=== PATIENT | female | born 1980 | race Hispanic/Latino ===

== ENCOUNTER 2019-11-22 15:15 | Observation (INO) | payer OTHER, SELFPAY ==
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
[2019-11-22 16:34] VITALS: BMI 35.2
[2019-11-22 16:41] LABS: #Eosinphils 0.1 thou/uL (0.0-0.7); #Lymphocytes 1.6 thou/uL (1.20-3.40); #Monocytes 0.3 thou/uL (0.11-0.59); #Neutrophils 7.9 thou/uL (1.40-6.50); %Basophils 0.3 % (0.0-1.0); %Eosinophils 0.5 % (0.0-10.0); %Lymphocytes 16.5 % (21.0-51.0); %Monocytes 3.3 % (0.0-10.0); %Neutrophils 79.4 % (42.0-75.0); Hemoglobin 12.6 g/dL (12.0-16.0); Mean Corpuscular HGB CONC 34.3 g/dL (32.0-36.0); Mean Corpuscular Hemoglobin 30.5 pg (27.0-31.0); Mean Corpuscular Volume 89.1 fL (78.0-98.0); Mean Platelet Volume 9.3 fL (7.4-10.4); Platelet Count 206 thou/uL (130-400); RBC Distribution Width 12.5 % (11.5-14.5); Red Blood Cell (RBC) Count 4.12 mill/uL (4.20-5.40); White Blood Cell (WBC) Count 9.9 thou/uL (4.8-10.8)
[2019-11-22] MEDS ORDERED: hydrALAZINE 20 MG/ML VIAL ONE (16:53)
[2019-11-22] MEDS ORDERED: Magnesium Sulfate 20 gm/500 ml 20 GM/500 ML BAG ONE (16:56)
[2019-11-22] MEDS ORDERED: hydrALAZINE 20 MG/ML VIAL SLOW IVP PRN (16:58)
[2019-11-22 17:01] LABS: ALT (SGPT) 13 U/L (8-55); AST (SGOT) 17 U/L (5-34); Albumin 3.6 g/dL (3.5-5.0); Alkaline Phosphatase 126 U/L (40-110); Anion Gap 15 mmol/L (10-20); BUN (Urea Nitrogen) 7 mg/dL (7.0-18.7); Bilirubin, Total 0.2 mg/dL (0.2-1.2); Calc. Creatinine Clearance 191 mL/min (70-130); Calcium 9.9 mg/dL (7.8-10.44); Carbon Dioxide 20 mmol/L (22-29); Chloride 103 mmol/L (98-107); Estimated GFR-MDRD Greater than 90; Globulin 3.4 g/dL (2.4-3.5); Glucose 79 mg/dL (70-105); Potassium 3.8 mmol/L (3.5-5.1); Sodium 134 mmol/L (136-145)
[2019-11-22] MEDS ORDERED: Betamet Acet/Betamet Na Ph 30 MG/5 ML VIAL ONE (18:03)
--- NOTE | 2019-11-22 18:21 | ULT ---
ULTRASOUND BIOPHYSICAL PROFILE: HISTORY: distress, preeclampsia workup FINDINGS: A single live intrauterine gestation is seen. heart rate:139bpm FIONA: 15.9 cm Placenta: Anterior without placenta previa OB biophysical profile: tone: 2 breathin movements: 2 Amniotic fluid: 2 IMPRESSION: The ultrasound biophysical profile score is 8 out of 8.
[2019-11-22 18:51] LABS: Creatinine, Urine Less than 20.00 mg/dL (47-110); Protein, Urine Random Quant Less than 10 mg/dL (1-14)
[2019-11-22] MEDS ORDERED: Acetaminophen 500 MG TAB PO PRN (18:55)
[2019-11-22] MEDS ORDERED: Calcium Carbonate 500 MG ChewTAB PO PRN (18:55)
[2019-11-22] MEDS ORDERED: Dextrose 50% Abboject 50 ML SYRINGE SLOW IVP PRN (19:05)
[2019-11-22] MEDS ORDERED: Dextrose 5% in Water 1,000 ML IV PRN (19:05)
[2019-11-22] MEDS ORDERED: HumaLOG 300 UNITS/3 ML VIAL SC PRN ×2 (19:05)
--- NOTE | 2019-11-22 19:26 | PDOC.EVN ---
Event Note - Event Note Event Note: BPP 8/8. NST reactive. BP after initial tirage and dose of hydralazine was negative. Urine Prot/Cr negative. CBC and CMP WNL. Uric acid elevated. Patient denies severe features at this time. I discussed with her and her the plan to observer her overnight until she is given a second dose of steroids. If she has repeat severe range BP or develops other severe features overnight, will initiate magnesium and proceed with rLTCS. Patient had prior classical with vertical skin incision. Will evaluate vertical skin vs Pfannenstiel at that time. Repeat labs tomorrow morning. qshift NST. Q4hr BP. will diagnose cHTN with superimposed gHTN v pre-eclampsia.
[2019-11-22] MEDS ORDERED: metFORMIN 500 MG TAB PO SCH (19:30)
--- NOTE | 2019-11-22 19:55 | PDOC.BPN ---
- Brief Progress Note Patient is resting comfortably, has no concerns at this time. Labs showed a uric acid of 9.9, Ur Protein/Creatinine ratio wnl, BPP 8/8, NST reactive. SVE: closed, thick and high. BPs have been stable since initial triage and dose of hydralazine. No further abnormal pressures. Patient denies severe features. We will admit and observe over night and patient will get second dose of steroids tomorrow. If patient has severe pressures overnight bia give Mg and likely go to rLTCs. We will get a morning CMP/CBC, get qshift NSTs, q4hr BPs, and fasting am BG check/2 hr postprandial BG checks. Diagnosis of cHTN with superimposed gHTN vs. Pre-E.
[2019-11-23 06:10] LABS: #Lymphocytes 1.4 thou/uL (1.20-3.40); #Monocytes 0.2 thou/uL (0.11-0.59); #Neutrophils 6.8 thou/uL (1.40-6.50); %Basophils 0.1 % (0.0-1.0); %Eosinophils 0.2 % (0.0-10.0); %Lymphocytes 16.8 % (21.0-51.0); %Monocytes 2.1 % (0.0-10.0); %Neutrophils 80.8 % (42.0-75.0); Hemoglobin 12.4 g/dL (12.0-16.0); Mean Corpuscular HGB CONC 34.6 g/dL (32.0-36.0); Mean Corpuscular Hemoglobin 31.1 pg (27.0-31.0); Mean Corpuscular Volume 89.7 fL (78.0-98.0); Mean Platelet Volume 9.2 fL (7.4-10.4); Platelet Count 201 thou/uL (130-400); RBC Distribution Width 12.7 % (11.5-14.5); Red Blood Cell (RBC) Count 3.99 mill/uL (4.20-5.40); White Blood Cell (WBC) Count 8.4 thou/uL (4.8-10.8)
--- NOTE | 2019-11-23 06:35 | PDOC.OBAPN ---
FMR OB AP PN: Sub - Interval History Hospital Day: 1 Chief Complaint: elevated BPs Interval History: Pt resting comfrotably, no complaints. Tolerating diet, ambulating. FMR OB AP PN: Obj - Maternal Vital signs: BP: 163/85 @ 0554, 146/75 @ 0613 HR: 96 - Heart Tones Baseline: 135 Variability: moderate Acceleration: present Deceleration: absent Category: category 1 FMR OB AP PN: Exam - Physical Exam General: NAD HEENT: normocephalic and atraumatic, grossly normal vision, grossly normal hearing Neck: supple Heart: RRR, normal S1/S2, no edema General: CTAB, no respiratory distress Abdomen: gravid, non-tender Musculoskeletal: FROM in all four extremities Neurological: no focal deficit Skin: no rash Lymphatic: no unusual bruising or bleeding Psychiatric: normal mood and affect FMR OB AP PN: Data - Labs Lab results: Laboratory Results - last 24 hr 11/22/19 11/22/19 11/22/19 16:00 16:30 16:32 WBC RBC Hgb Hct MCV MCH MCHC RDW Plt Count MPV Neutrophils % Lymphocytes % Monocytes % Eosinophils % Basophils % Neutrophils # Lymphocytes # Monocytes # Eosinophils # Basophils # Sodium 134 L Potassium 3.8 Chloride 103 Carbon Dioxide 20 L Anion Gap 15 BUN 7 Creatinine 0.52 L Estimated GFR (MDRD) Greater than 90 Glucose 79 POC Glucose Uric Acid 5.8 Calcium 9.9 Total Bilirubin 0.2 AST 17 ALT 13 Alkaline Phosphatase 126 H Serum Total Protein 7.0 Albumin 3.6 Globulin 3.4 Albumin/Globulin Ratio 1.1 L U Random Total Protein Less than 10 Urine Creatinine Less than 20.00 L 11/22/19 11/22/19 11/23/19 16:32 19:29 05:52 WBC 9.9 8.4 RBC 4.12 L 3.99 L Hgb 12.6 12.4 Hct 36.7 35.8 L MCV 89.1 89.7 MCH 30.5 31.1 H MCHC 34.3 34.6 RDW 12.5 12.7 Plt Count 206 201 MPV 9.3 9.2 Neutrophils % 79.4 H 80.8 H Lymphocytes % 16.5 L 16.8 L Monocytes % 3.3 2.1 Eosinophils % 0.5 0.2 Basophils % 0.3 0.1 Neutrophils # 7.9 H 6.8 H Lymphocytes # 1.6 1.4 Monocytes # 0.3 0.2 Eosinophils # 0.1 0.0 Basophils # 0.0 0.0 Sodium Potassium Chloride Carbon Dioxide Anion Gap BUN Creatinine Estimated GFR (MDRD) Glucose POC Glucose 98 Uric Acid Calcium Total Bilirubin AST ALT Alkaline Phosphatase Serum Total Protein Albumin Globulin Albumin/Globulin Ratio U Random Total Protein Urine Creatinine FMR OB AP PN: A/P - Problem List (1) Chronic hypertension affecting Current Visit: Yes Status: Acute Code(s): O10.919 - UNSP PRE-EXISTING HTN COMP , UNSP TRIMESTER (2) Gestational diabetes Current Visit: Yes Status: Acute Code(s): O24.419 - GESTATIONAL DIABETES MELLITUS IN , UNSP CONTROL (3) Advanced maternal age (AMA) in Current Visit: Yes Status: Acute Code(s): [id number] - (4) History of delivery Current Visit: Yes Status: Acute Code(s): Z98.891 - HISTORY OF UTERINE SCAR FROM PREVIOUS SURGERY Disposition: Patient is a 39 year old at 34.1 weeks based on 13 week sono presenting with elevated BPs. # Elevated blood pressure in the setting of chronic HTN - hx of cHTN, not on any meds at home - BPs normal overnight, this morning 163/85 and 146/76 - CBC and CMP, WNL - Urine Pr/Cr normal - BPs q4h - second dose of steroid being given today #A2 GDM - Currently taking Metformin 1000 BID - fasting and 2 hr postprandial blood glucose today #sIUP - NST qshift: reactive, Cat 1: 135/mod/+accel/ no decel - BPP 11/26 - f/u PNC #AMA - Aware #History of - Currently scheduled for repeat on 12/13/19 Code status: full Diet: HH Dispo: Stable, pt admitted for obs overnight to monitor BPs, labs ruled out preE , NST reactive/Cat 1, BPP 11/26, second dose of steroid sangita today, continue routine OB care as outpatient, LOS <48hrs Discussion: Date/Time: 11/23/19 0631 This H&P was discussed with Dr. Hare and who agree with the above documentation and plan. Signature: Lesley Pierre, PGY1 Addendum - Attending - Attending Attestation Date/Time: 11/23/19 1984 I personally evaluated the patient and discussed the management with Dr. Pierre. I agree with the History, Examination, Assessment and Plan documented above with any addition or exceptions noted below. One severe range BP, spurious (had been up walking around). No severe symptoms. Continue steroids and monitoring of BPs, as well as fetus.
[2019-11-23 07:08] LABS: ALT (SGPT) 13 U/L (8-55); AST (SGOT) 17 U/L (5-34); Albumin 3.4 g/dL (3.5-5.0); Alkaline Phosphatase 118 U/L (40-110); Anion Gap 15 mmol/L (10-20); BUN (Urea Nitrogen) 8 mg/dL (7.0-18.7); Bilirubin, Total 0.4 mg/dL (0.2-1.2); Calc. Creatinine Clearance 199 mL/min (70-130); Calcium 9.3 mg/dL (7.8-10.44); Carbon Dioxide 18 mmol/L (22-29); Chloride 103 mmol/L (98-107); Estimated GFR-MDRD Greater than 90; Globulin 3.4 g/dL (2.4-3.5); Glucose 102 mg/dL (70-105); Potassium 4.1 mmol/L (3.5-5.1); Protein, Total 6.8 g/dL (6.0-8.3); Sodium 132 mmol/L (136-145)
[2019-11-23] MEDS: metFORMIN 500 MG TAB PO SCH ×2 (08:30→16:50)
[2019-11-23] MEDS ORDERED: Aspirin 81 mg Enteric Coated Tablet PO SCH (09:00)
[2019-11-23] MEDS ORDERED: Prenatal Vitamin 1 TAB PO SCH (09:00)
[2019-11-23 10:53] VITALS: BP 134/70; TEMP 98
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
--- NOTE | 2019-11-23 15:09 | PDOC.BPN ---
- Brief Progress Note OBGYN Communications Tower Technician I was asked by Dr Pierre and Dr La, after their medical briefing, to see the patient at bedside. I evaluated the patient at bedside along with Dr Pierre. This patient is at 34 weeks, prior CS, with CHTN and GDM on oral antiglycemics. She is not on oral anti-hypertensives. She is in L&D for BP obs...labs wnl, nonproteinuric. She did require a dose of antihypertensive but BPs have not persisted in the severe range. Last sono was growth was 2 weeks ago and was slightly larger than expected (no IUGR). BPP was normal this eval period. I suspect this is chronic HTN exacerbation rather than superimposed PRE. I am OK with outpatient care and steroids. She bia have secondary hyperglycemia after the steroid. I have discussed this with the patient. OK for 1-2 times a week BP checks. I discussed with her and her partner in depth CHTN, PRE and GDM based on ACOG criteria. Bed rest not recommended (the partner did inquire about this). Plan reviewed with Dr Pierre and Dr Yung. Patient planned for 36 week repeat CS due to her HX. Please see Dr Sun progress note about this bedside eval
[2019-11-23] MEDS ORDERED: Betamet Acet/Betamet Na Ph 30 MG/5 ML VIAL IM SCH (18:00)
--- NOTE | 2019-11-24 03:51 | DIS ---
DATE OF ADMISSION: 11/22/2019 DATE OF DISCHARGE: 11/23/2019 RESIDENT: Lesley Pierre, PGY-1 ADMITTING ATTENDING: Duarte Yung MD DISCHARGE ATTENDING: Duarte Yung MD CONSULTS: Hari Gallegos MD PROCEDURES: None. PRIMARY DIAGNOSIS: Chronic hypertension affecting . SECONDARY DIAGNOSES: Gestational diabetes, advanced maternal age, history of delivery. DISCHARGE MEDICATIONS: None. DISCONTINUED MEDICATIONS: None. HISTORY OF PRESENT ILLNESS: The patient is a 39-year-old, G2, P0 at 34 and 1 weeks who presented from clinic with severe blood pressures. She has a history of chronic hypertension, not on any medications and A2 GDM treated with metformin. She was being followed by [facility] with the most recent ultrasound on November 07 showing an LGA fetus. The patient records blood pressures once daily at home and reports they are normally 130s/80s with occasional systolic pressures in the 140s after work. The patient reports movement and denies headache, vision changes, abdominal pain, vaginal discharge, or bleeding. Upon arrival, had 2 elevated blood pressures with systolics in the 160s, given 5 mg of hydralazine and they normalized. Throughout the night, BPs were normal. Had 1 elevated pressure of 163/85, taken right after patient was moving around. Labs drawn to evaluate for preeclampsia showed normal CBC, CMP, and urine protein to creatinine ratio. The patient does not report any symptoms necessary for diagnosis of preeclampsia with severe features. On physical examination, the patient's vital signs were stable and rest of physical exam was within normal limits. heart tones were category 1, baseline 135 moderate variability present, accelerations, no decelerations. The patient was treated with [address] Hari Gallegos was consulted for input on discharge versus delivery. He stated that given her history of chronic hypertension and no evidence of preeclampsia with severe features, she was safe to go home after her steroid treatment with close followup of BP. We discussed risks of going home, including IUFD and maternal complications. Pt voiced understanding. Strict return precautions discussed. She was discharged home and told to follow up at a clinic this week and get an NST this week. She is currently scheduled for repeat on December 13, 2019. DISCHARGE INSTRUCTIONS: 1. Location: Discharged home. 2. Diet: Diabetic diet. 3. Activity: As tolerated. 4. Followup: Follow up this week at clinic and at [facility]. Job ID: [id number]
== END 2019-11-23 18:45 | disposition home health service (06) ==
LOC: L&D/OP 15:15 → L&D 21:48 → INTOOBSV 21:48
PROVIDERS: ADMIT Emergency Medicine; ATTEND Emergency Medicine
DX: O10.913 Unspecified pre-existing hypertension complicating pregnancy, third trimester (principal); O24.415 Gestational diabetes mellitus in pregnancy, controlled by oral hypoglycemic drugs; O09.523 Supervision of elderly multigravida, third trimester; O34.219 Maternal care for unspecified type scar from previous cesarean delivery; O36.63X0 Maternal care for excessive fetal growth, third trimester, not applicable or unspecified; Z3A.34 34 weeks gestation of pregnancy; Z79.82 Long term (current) use of aspirin; Z79.84 Long term (current) use of oral hypoglycemic drugs
CPT/HCPCS: 36415; 36416; 76819; 80053; 82570; 84156; 84550; 85025; 96372; 96374; 99285; G0378; J0360; J0702; J3475